=== PATIENT | female | born 1985 | race Caucasian/White ===

== ENCOUNTER 2019-09-21 02:17 | Emergency (ER) | payer OTHER ==
[~2019-09-21] VITALS: Ht 154.9 cm; Wt 90.7 kg
[2019-09-21] MEDS ORDERED: LAMICTAL ODT200 MG PO (02:33)
[2019-09-21] MEDS ORDERED: LEXAPRO20 MG PO (02:33)
[2019-09-21] MEDS ORDERED: XANAX 0.5 MG0.5 M1 PO (02:34)
[2019-09-21 03:23] VITALS: BP 128/83
== END 2019-09-21 03:31 | disposition home or self-care (01) ==
LOC: ER 02:17
DX: S93.401A Sprain of unspecified ligament of right ankle, initial encounter (principal); F17.210 Nicotine dependence, cigarettes, uncomplicated; Z98.890 Other specified postprocedural states; Z79.899 Other long term (current) drug therapy; Z91.018 Allergy to other foods; Z88.0 Allergy status to penicillin; Z88.2 Allergy status to sulfonamides; W10.8XXA Fall (on) (from) other stairs and steps, initial encounter; Y93.89 Activity, other specified; Y92.098 Other place in other non-institutional residence as the place of occurrence of the external cause; Y99.8 Other external cause status